=== PATIENT | male | born 1990 | race Caucasian/White ===

== ENCOUNTER 2018-09-20 22:04 | Emergency (ER) | payer OTHER ==
[2018-09-20 22:15] VITALS: BP 156/97; PULSE 75; TEMP 97.6; BMI 28.7
--- NOTE | 2018-09-20 22:48 | PDOC ---
History of Present Illness - General Chief Complaint: Migraine Headache Stated Complaint: PAIN Time Seen by Provider: 09/20/18 22:41 - History of Present Illness Initial Comments: 09/20/18 22:59 The patient is a 28 year old male with no significant PMH who presents for evaluation of headache. The patient reports onset of left sided sharp tight headache with associated nausea and photophobia 1-2 hours prior to presentation to the ED for further evaluation. He notes that he has been having episodes of similar headaches over the past 1-2 months, however this one had been more severe prompting his presentation. He states that he used to have migraines as a child and his current symptoms feel similar to those. He otherwise denies fevers, chills, SOB, chest pain, vomiting, numbness, tingling, weakness, abdominal pain, or changes with urination or bowel movements. Past History - Past Medical History Allergies/Adverse Reactions: Allergies Allergy/AdvReac Type Severity Reaction Status Date / Time No Known Allergies Allergy Verified 09/20/18 22:14 COPD: No - Suicide/Smoking/Psychosocial Hx Smoking History: Never smoked Have you smoked in the past 12 months: No Information on smoking cessation initiated: No Hx Alcohol Use: No Drug/Substance Use Hx: No Review of Systems - Review of Systems Comments:: 09/20/18 23:13 Constitutional: No fevers, chills, fatigue, malaise HEENT: No Rhinorrhea, nasal congestion, visual changes Cardiovascular: No chest pain, syncope, palpitations, lightheadedness Respiratory: No Cough, SOB, Hemoptysis, Gastrointestinal: Nausea. No Abdominal pain, Vomiting, Constipation, Diarrhea, Melena Genitourinary: No Dysuria, Frequency, Urgency, Hesitancy, Hematuria, Flank pain Musculoskeletal: No Myalgia, arthralgia Skin: No rashes, itching, bruising, pallor Neurologic: Headache. No Dizziness, Numbness, Weakness, or Tingling Psychiatric: No Hallucinations. No SI or HI *Physical Exam - Vital Signs Last Vital Signs Temp Pulse Resp BP Pulse Ox 97.6 F 75 16 156/97 100 09/20/18 22:12 09/20/18 22:12 09/20/18 22:12 09/20/18 22:12 09/20/18 22:12 - Physical Exam Comments: 09/20/18 23:15 General Appearance: Nourished. No Apparent Distress HEENT: EOMI, MONICA. No Pharyngeal Erythema, Tonsillar Exudate, Tonsillar Erythema Neck: No Cervical Lymphadenopathy Respiratory/Chest: Lungs Clear, Normal Breath Sounds. No Crackles, Rales, Rhonchi, Wheezing Cardiovascular: Regular Rhythm, Regular Rate. No Murmur, Gallops, Rubs Gastrointestinal/Abdominal: Normal Bowel Sounds, Soft. No Guarding, Rebound, Tenderness Musculoskeletal: No CVA Tenderness Extremity: Normal Capillary Refill Integumentary: Normal Color, Dry, Warm Neurologic: fiber optics technician II-XII NML intact, Fully Oriented, Alert, Normal Mood/Affect, Normal Response, Motor Strength 5/5. Normal Finger to Nose and Heel to [place] Moderate Sedation - Procedure Monitoring Vital Signs: Procedure Monitoring Vital Signs Temperature 97.6 F 09/20/18 22:12 Pulse Rate 75 09/20/18 22:12 Respiratory Rate 16 09/20/18 22:12 Blood Pressure 156/97 09/20/18 22:12 O2 Sat by Pulse Oximetry (%) 100 09/20/18 22:12 ED Treatment Course - LABORATORY CBC & Chemistry Diagram: 09/20/18 23:12 09/20/18 23:12 Medical Decision Making - Medical Decision Making 09/20/18 23:16 The patient is a 28 year old male with no significant PMH who presents for evaluation of headache. Given the patient's history and physical exam, it is likely his symptoms are due to a migraine headache. However, we will obtain a cbc, cmp, coags, head CT to evaluate further and treat with iv fluids, tylenol, reglan, benadryl and continue to monitor and reassess while here in the ED. 09/20/18 23:54 Patient signed out to the night team pending lab results and head CT and reassessment. *DC/Admit/Observation/Transfer Diagnosis at time of Disposition: Headache, Transaminasemia - Discharge Dispostion Disposition: HOME Condition at time of disposition: Stable - Referrals Referrals: [facility] [place] [Provider Group] - Patient Instructions Printed Discharge Instructions: DI for Headache Additional Instructions: You were seen in the ER for a headache. We did an exam, labs, and a head CT, and we did not find any signs of an emergency. Your pain improved with the medications we gave you here in the ER. After our assessment, we believe you are not having a medical emergency and you are safe to go home. Please take over -the-counter pain relievers like naproxen (aleve) or ibuprofen (Motrin) or Tylenol. Stay very well-hydrated, and try avoiding foods containing the chemicals tyramine and nitrates (such as chocolate, cheese, and processed meats ) because these are associated with migraine-type headaches. Follow up with your primary care provider(s) in the next 1-3 days. Call their clinic [place], tell them you were seen in the ER, and tell them you need an appointment. Please come back to the ER at any time, 24 hours a day, for any new or worsening symptoms, like worsening headache, new numbness/tingling, fainting, dizziness, new vision changes, high fever, or other symptoms. If you are having symptoms that make it unsafe to drive, please call 911. Also, your liver enzymes were a bit elevated. You need to follow up with your regular doctor about this and have repeat labs done. You also need to talk with them about your blood pressure because it was consistently high for us here in the ER. We are giving you referral information for a new PCP in case you would like a new one. - Post Discharge Activity
[2018-09-20] MEDS ORDERED: METOCLOPRAMIDE HCL INJECTION 10 MG/2 ML VIAL IVPUSH ONE (22:49)
[2018-09-20] MEDS ORDERED: SODIUM CHLORIDE 1,000 ML IV STA (22:49)
[2018-09-20] MEDS ORDERED: ACETAMINOPHEN 1000 MG/100 ML VIAL (NON FORMULARY) IVPB ONE (22:49)
[2018-09-20] MEDS ORDERED: ACETAMINOPHEN INJECTION 100 ML IVPB ONE (23:12)
[2018-09-20] MEDS ORDERED: METOCLOPRAMIDE HCL INJECTION 10 MG/2 ML VIAL ONE (23:12)
[2018-09-20 23:47] LABS: BASO % 0.6 % (0-2.0); EOS % 3.1 % (0-4.5); HEMATOCRIT 44.4 % (35.4-49); HEMOGLOBIN 15.2 GM/dL (11.7-16.9); LYMPH % 19.8 % (8-40); MCH 28.2 pg (25.7-33.7); MCHC 34.3 g/dl (32.0-35.9); MEAN CELL VOLUME 82.2 fl (80-96); MEAN PLT VOLUME 9.8 fl (7.5-11.1); MONO % 7.9 % (3.8-10.2); NEUT % 68.6 % (42.8-82.8); PLATELET COUNT 192 K/MM3 (134-434); RDW 13.4 % (11.9-15.9); WHITE BLOOD COUNT 7.1 K/mm3 (4.0-10.0)
--- NOTE | 2018-09-20 23:49 | PDOC ---
Attending Attestation - HPI HPI: 09/20/18 23:50 The patient is a 28 year old male with no significant PMH who presents to the emergency department with a headache today. The patient describes the headache as localized on the left side, with associated nausea and photophobia. Patient states this is his fifth headache over the last few months. He notes he has had migraines in the past, and the headache today feels similar. The patient denies chest pain, shortness of breath and dizziness. Denies fever, chills, nausea, vomit, diarrhea and constipation. Denies dysuria, frequency, urgency and hematuria. Allergies: NKA Past surgical history: None reported. Social history: No reported alcohol, drug or cigarette use. <Sade Harmon - Last Filed: 09/20/18 23:50> - Resident Resident Name: Joce Cruz - ED Attending Attestation I have performed the following: I have examined & evaluated the patient, The case was reviewed & discussed with the resident, I agree w/resident's findings & plan - Physicial Exam PE: 09/20/18 23:57 Agree with resident exam - Medical Decision Making 09/21/18 04:24 Pt's exam is normal; the only problem is his elevated BP: 142/93, despite resolution of SCHOFIELD. Pt has a hx of elevated BP... We discussed the need to limit sat intake. Pt understands that he needs to follow with PMD and take antiHTN if he cannot control the BP with diet. <Caitlyn Rosa - Last Filed: 09/21/18 04:25>
[2018-09-21 00:56] LABS: ALBUMIN 4.6 g/dl (3.4-5.0); ALK PHOS 102 U/L (45-117); ANION GAP 8 MMOL/L (8-16); BILIRUBIN,TOTAL 0.2 mg/dL (0.2-1); BLOOD UREA NITROGEN 17 mg/dL (7-18); CALCIUM 8.5 mg/dL (8.5-10.1); CHLORIDE 99 mmol/L (98-107); CO2 28 mmol/L (21-32); CREATININE 1.1 mg/dL (0.55-1.3); GLUCOSE,RANDOM 108 mg/dL (74-106); POTASSIUM 3.8 mmol/L (3.5-5.1); SGOT/AST 41 U/L (15-37); SGPT/ALT 92 U/L (13-61); SODIUM 135 mmol/L (136-145); TOT PROT 8.4 g/dl (6.4-8.2)
--- NOTE | 2018-09-21 02:11 | PDOC ---
*Physical Exam - Vital Signs Last Vital Signs Temp Pulse Resp BP Pulse Ox 97.6 F 75 16 156/97 100 09/20/18 22:12 09/20/18 22:12 09/20/18 22:12 09/20/18 22:12 09/20/18 22:12 - Physical Exam Comments: Patient's care was endorsed to me by Dr. Cruz at the end of his shift. Patient presented with sharp left sided headache for the past several hours, similar to prior SCHOFIELD but longer lasting. Given analgesia on arrival to the ED with relief. Awaiting HCT then will re-assess. ED Treatment Course - LABORATORY CBC & Chemistry Diagram: 09/20/18 23:12 09/20/18 23:12 - ADDITIONAL ORDERS Additional order review: Laboratory Results 09/20/18 23:12 Sodium 135 L Potassium 3.8 Chloride 99 Carbon Dioxide 28 Anion Gap 8 BUN 17 Creatinine 1.1 Creat Clearance w eGFR > 60 Random Glucose 108 H Calcium 8.5 Total Bilirubin 0.2 AST 41 H ALT 92 H Alkaline Phosphatase 102 Total Protein 8.4 H Albumin 4.6 09/20/18 23:12 RBC 5.40 MCV 82.2 MCHC 34.3 RDW 13.4 MPV 9.8 Neutrophils % 68.6 Lymphocytes % 19.8 Monocytes % 7.9 Eosinophils % 3.1 Basophils % 0.6 - Medications Given in the ED: ED Medications Discontinued Medications Generic Name Dose Route Start Last Admin Trade Name Freq PRN Reason Stop Dose Admin Acetaminophen 1,000 mg 09/20/18 22:49 09/20/18 23:30 Ofirmev Injection - IVPB 09/20/18 22:50 1,000 mg ONCE ONE Administration Diphenhydramine HCl 25 mg 09/20/18 22:49 09/20/18 23:30 Benadryl Injection - IVPUSH 09/20/18 22:50 25 mg ONCE ONE Administration Sodium Chloride 1,000 mls @ 1,000 mls/hr 09/20/18 22:49 09/20/18 23:30 Normal Saline - IV 09/20/18 23:48 1,000 mls/hr ASDIR STA Administration Metoclopramide HCl 10 mg 09/20/18 22:49 09/20/18 23:30 Reglan Injection - IVPUSH 09/20/18 22:50 10 mg ONCE ONE Administration Medical Decision Making - Medical Decision Making 09/21/18 02:[address]: Nothing acute Laboratory Tests 09/20/18 09/20/18 23:12 23:12 WBC 7.1 RBC 5.40 Hgb 15.2 Hct 44.4 MCV 82.2 MCH 28.2 MCHC 34.3 RDW 13.4 Plt Count 192 MPV 9.8 Absolute Neuts (auto) 4.8 Neutrophils % 68.6 Lymphocytes % 19.8 Monocytes % 7.9 Eosinophils % 3.1 Basophils % 0.6 Nucleated RBC % 0 Sodium 135 L Potassium 3.8 Chloride 99 Carbon Dioxide 28 Anion Gap 8 BUN 17 Creatinine 1.1 Creat Clearance w eGFR > 60 Random Glucose 108 H Calcium 8.5 Total Bilirubin 0.2 AST 41 H ALT 92 H Alkaline Phosphatase 102 Total Protein 8.4 H Albumin 4.6 Reassessment: Patient states feels much better, has minimal residual pain. DISCHARGE This patient has gotten significant relief of symptoms while in the ED. On last reassessment, vitals are wnl, pain is reasonably controlled, and exam is benign. Workup is not concerning for emergency-level pathology at this time. This patient is appropriate for discharge home w/ close outpatient f/u. He is comfortable with this plan. He will take Motrin and/or Tylenol for pain. He will follow up with his primary care provider in the next 1-3 days. Specific return precautions are discussed and he will come back to the ER if necessary. *DC/Admit/Observation/Transfer Diagnosis at time of Disposition: Transaminasemia Headache Qualifiers: Headache type: unspecified Headache chronicity pattern: unspecified pattern Intractability: not intractable Qualified Code(s): R51 - Headache - Discharge Dispostion Disposition: HOME Condition at time of disposition: Stable Decision to Admit order: No - Referrals Referrals: [facility] [place] [facility] [place] [Provider Group] - Patient Instructions Printed Discharge Instructions: DI for Headache Additional Instructions: You were seen in the ER for a headache. We did an exam, labs, and a head CT, and we did not find any signs of an emergency. Your pain improved with the medications we gave you here in the ER. After our assessment, we believe you are not having a medical emergency and you are safe to go home. Please take over -the-counter pain relievers like naproxen (aleve) or ibuprofen (Motrin) or Tylenol. Stay very well-hydrated, and try avoiding foods containing the chemicals tyramine and nitrates (such as chocolate, cheese, and processed meats ) because these are associated with migraine-type headaches. Follow up with your primary care provider(s) in the next 1-3 days. Call their clinic [facility], tell them you were seen in the ER, and tell them you need an appointment. Please come back to the ER at any time, 24 hours a day, for any new or worsening symptoms, like worsening headache, new numbness/tingling, fainting, dizziness, new vision changes, high fever, or other symptoms. If you are having symptoms that make it unsafe to drive, please call 911. Also, your liver enzymes were a bit elevated. You need to follow up with your regular doctor about this and have repeat labs done. You also need to talk with them about your blood pressure because it was consistently high for us here in the ER. We are giving you referral information for a new PCP in case you would like a new one. - Post Discharge Activity
== END 2018-09-21 03:07 | disposition home or self-care (01) ==
LOC: JER 22:04
PROC: 3E033NZ Introduction of Analgesics, Hypnotics, Sedatives into Peripheral Vein, Percutaneous Approach (ICD-10-PCS; principal; 2018-09-20)
PROC: 3E033GC Introduction of Other Therapeutic Substance into Peripheral Vein, Percutaneous Approach (ICD-10-PCS; 2018-09-20)
PROC: 3E033GC Introduction of Other Therapeutic Substance into Peripheral Vein, Percutaneous Approach (ICD-10-PCS; 2018-09-20)
DX: R51 Headache (principal); R74.0 Nonspecific elevation of levels of transaminase and lactic acid dehydrogenase [LDH]
CPT/HCPCS: 36415; 70450-TC; 80053; 85025; 96374; 96375; 99282-25; J0131; J7030

== ENCOUNTER → 2018-09-22 | Emergency (ER) | payer OTHER ==
[~2018-09-22] MED LIST: ACETAMINOPHEN 650 MG/20.3 ML ORAL SOLUTION (CUPS) ONE; OSELTAMIVIR PHOSPHATE 75 MG CAPSULE ONE
[2018-09-22 19:41] VITALS: BP 155/100; PULSE 85; TEMP 98.3; BMI 28.1
== END | disposition left against medical advice (07) ==
LOC: JER 19:34
DX: G50.1 Atypical facial pain (principal)
CPT/HCPCS: 99281-25